=== PATIENT | male | born 1965 | race African-American/Black ===

== ENCOUNTER 2023-08-05 08:21 | Inpatient (IN) | payer OTHER ==
[2023-08-05 08:57] VITALS: BMI 27.0
[2023-08-05] MEDS ORDERED: MAGNESIUM HYDROX 2400MG/30ML ORAL SUSPENSION 30 ML CUP PO PRN (09:12)
[2023-08-05] MEDS ORDERED: IBUPROFEN 400 MG TABLET (FP) PO PRN (09:12)
[2023-08-05] MEDS ORDERED: P-EPHED 60MG/TRIPROLIDI 2.5MG TABLET PO PRN (09:12)
[2023-08-05] MEDS ORDERED: METHOCARBAMOL 500 MG TABLET PO PRN (09:12)
[2023-08-05] MEDS ORDERED: MAG HYDROX/AL HYDROX/SIMETH 30 ML UNIT-DOSE CUP PO PRN (09:12)
[2023-08-05] MEDS ORDERED: POLYETHYLENE GLYCOL (HEALTHYLAX) 3350 17 GM PACKET PO PRN (09:12)
[2023-08-05] MEDS ORDERED: BENZOCAINE/MENTHOL (CHLORASEPTIC ) LOZENGE MM PRN (09:12)
[2023-08-05] MEDS ORDERED: ONDANSETRON *ODT* 4 MG TABLET SL PRN (09:12)
[2023-08-05] MEDS ORDERED: NICOTINE POLACRILEX 2 MG GUM BUC PRN (09:12)
[2023-08-05] MEDS ORDERED: guaiFENesin 600 MG TABLET.ER (FP) PO PRN (09:12)
[2023-08-05] MEDS ORDERED: hydrOXYzine PAMOATE 25 MG CAPSULE (FP) PO PRN (09:12)
[2023-08-05] MEDS ORDERED: IBUPROFEN 600 MG TABLET (FP) PO PRN (09:12)
[2023-08-05] MEDS ORDERED: BISMUTH SUBSALICYLATE 524 MG/30 ML PO PRN (09:12)
[2023-08-05] MEDS ORDERED: LOPERAMIDE HCL 2 MG CAPSULE PO PRN (09:12)
[2023-08-05] MEDS ORDERED: DICYCLOMINE HCL 10 MG CAPSULE PO PRN (09:12)
[2023-08-05] MEDS ORDERED: BENZONATATE 200 MG CAPSULE PO PRN (09:12)
[2023-08-05] MEDS ORDERED: ACETAMINOPHEN 325 MG TABLET (FP) PO PRN (09:12)
[2023-08-05] MEDS: PRENATAL VITAMINS W/ FOLIC ACID TABLET (FP) PO SCH (11:00)
[2023-08-05] MEDS: MELATONIN 5 MG TABLETS PO SCH (22:32)
[2023-08-05] MEDS: THIAMINE 100 MG TABLET PO SCH (22:32)
[2023-08-06] MEDS: PRENATAL VITAMINS W/ FOLIC ACID TABLET (FP) PO SCH (10:23)
[2023-08-06] MEDS: FOLIC ACID 1 MG TABLET (FP) PO SCH (10:25)
[2023-08-06 11:54] LABS: HEMATOCRIT 31.1 % (35.4-49); HEMOGLOBIN 10.3 GM/dL (11.7-16.9); MCHC 33.2 g/dl (32.0-35.9); MEAN CELL VOLUME 87.4 fl (80-96); MEAN PLT VOLUME 8.5 fl (7.5-11.1); PLATELET COUNT 214 10^3/uL (134-434); RBC 3.56 M/mm3 (4.00-5.60); RDW 16.2 % (11.9-15.9); WHITE BLOOD COUNT 3.7 K/mm3 (4.0-10.0)
[2023-08-06 12:00] LABS: CHLORIDE 111 mmol/L (98-107); POTASSIUM 4.2 mmol/L (3.5-5.1); SODIUM 143 mmol/L (136-145)
[2023-08-06 12:02] LABS: ANION GAP 4 mmol/L (4-13); CALCIUM 8.7 mg/dL (8.5-10.1); CO2 28 mmol/L (21-32); GLUCOSE,RANDOM 84 mg/dL (74-106)
[2023-08-06 12:03] LABS: ALBUMIN 3.1 g/dl (3.4-5.0); BLOOD UREA NITROGEN 14.9 mg/dL (7-18)
[2023-08-06 12:06] LABS: CREATININE 0.8 mg/dL (0.55-1.3); SGOT/AST 16 U/L (15-37); SGPT/ALT 15 U/L (13-61)
[2023-08-06 12:07] LABS: BILIRUBIN,TOTAL 0.4 mg/dL (0.2-1); TOT PROT 5.6 g/dl (6.4-8.2)
[2023-08-06 12:08] LABS: ALK PHOS 74 U/L (45-117)
[2023-08-06] MEDS ORDERED: diazePAM 5 MG TABLET PO PRN (12:35)
[2023-08-06] MEDS: GABAPENTIN 300 MG CAPSULE PO SCH (15:30)
[2023-08-06] MEDS: risperiDONE 2 MG TABLET PO SCH (15:30)
[2023-08-06] MEDS: diazePAM 5 MG TABLET PO SCH (17:47)
[2023-08-06] MEDS: risperiDONE 3 MG TABLET PO SCH (23:23)
[2023-08-07] MEDS: diazePAM 5 MG TABLET PO SCH (06:00)
[2023-08-07 06:25] VITALS: RESP 16
[2023-08-07 10:04] VITALS: BP 106/66; PULSE 74; TEMP 97.1
[2023-08-08] MEDS ORDERED: diazePAM 5 MG TABLET PO SCH (06:00)
[2023-08-09] MEDS ORDERED: diazePAM 5 MG TABLET PO ONE (06:00)
== END 2023-08-07 10:35 | disposition home or self-care (01) | DRG 774 ==
LOC: YASAS 08:21 → Y6N 09:22
PROVIDERS: ADMIT Allergy & Immunology; ATTEND Surgery
PROC: HZ2ZZZZ Detoxification Services for Substance Abuse Treatment (ICD-10-PCS; principal; 2023-08-05)
DX: F10.230 Alcohol dependence with withdrawal, uncomplicated (principal); F14.20 Cocaine dependence, uncomplicated; F12.10 Cannabis abuse, uncomplicated; F17.210 Nicotine dependence, cigarettes, uncomplicated; F25.0 Schizoaffective disorder, bipolar type; F19.282 Other psychoactive substance dependence with psychoactive substance-induced sleep disorder; F19.24 Other psychoactive substance dependence with psychoactive substance-induced mood disorder; F43.10 Post-traumatic stress disorder, unspecified; Z99.89 Dependence on other enabling machines and devices; Z88.0 Allergy status to penicillin; Z88.2 Allergy status to sulfonamides; Z87.828 Personal history of other (healed) physical injury and trauma; Z59.00 Homelessness unspecified; Z56.0 Unemployment, unspecified
CPT/HCPCS: 0241U-QW; 36415; 80053; 80305; 80307; 85027; 86780; 87811; 93005; 93010